=== PATIENT | male | born 1930 | race Caucasian/White ===

== ENCOUNTER 2016-12-27 09:38 | Emergency (ER) | payer MEDICARE, BC ==
--- NOTE | 2016-12-27 10:17 | UC ---
Throat Pain/Nasal Derick HPI - HPI Summary HPI Summary: patient is visiting from [facility], has developed increased sinus pain and pressure, ear pain and persistant cough. - History of Current Complaint Chief Complaint: UCGeneralIllness Stated Complaint: SINUS,EAR PAIN,SORE THROAT Time Seen by Provider: 12/27/16 10:10 Hx Obtained From: Patient Onset/Duration: Sudden Onset, Lasting Days Severity: Moderate Cough: Nonproductive Associated Signs & Symptoms: Positive: Wheezing, Sinus Discomfort, Nasal Discharge - Epiglottits Risk Factors Epiglottis Risk Factors: Negative - Allergies/Home Medications Allergies/Adverse Reactions: Allergies Allergy/AdvReac Type Severity Reaction Status Date / Time No Known Allergies Allergy Verified 12/27/16 09:51 Home Medications: Home Medications Acetaminophen TAB* [Tylenol TAB*] 500 mg PO DAILY 12/27/16 [History Confirmed ] Aspirin EC Low Dose* [Ecotrin EC Low Dose 81 MG*] 81 mg PO DAILY 12/27/16 [ History Confirmed 12/27/16] Atorvastatin* [Lipitor 20 MG*] 20 mg PO BEDTIME 12/27/16 [History Confirmed ] Cholecalciferol TAB* [Vitamin D TAB*] 400 unit PO DAILY 12/27/16 [History Confirmed 12/27/16] Clopidogrel TAB* [Plavix TAB*] 75 mg PO BEDTIME 12/27/16 [History Confirmed ] Cyanocobalamin TAB* [Vitamin B12 TAB*] 1,000 mcg PO DAILY 12/27/16 [History Confirmed 12/27/16] Ferrous Sulfate TAB* 325 mg PO DAILY 12/27/16 [History Confirmed 12/27/16] Metoprolol Succinate XL TAB* [Toprol XL TAB*] 50 mg PO DAILY 12/27/16 [History Confirmed 12/27/16] Pantoprazole TAB (NF) [Protonix TAB (NF)] 40 mg PO DAILY 12/27/16 [History Confirmed 12/27/16] [id number] [Tylenol Sinus Congestion 5-325-200 mg] 2 tab PO Q6HR PRN 12/27/16 [History Confirmed 12/27/16] Tamsulosin CAP* [Flomax CAP*] 0.4 mg PO BEDTIME 12/27/16 [History Confirmed ] amLODIPine TAB* [Norvasc 5 mg TAB*] 5 mg PO DAILY 12/27/16 [History Confirmed ] PMH/Surg Hx/FS Hx/Imm Hx Previously Healthy: Yes Cardiovascular History Of: Reports: Cardiac Disorders, Hypertension GI/ History Of: Reports: Ulcer - Surgical History Surgical History: Yes Surgery Procedure, Year, and Place: left rotator cuff 99, dupertons left hand 01 , dupertons right hand 04, right knee replacement 05, right shoulder replacement 11, carpal tunnel bilateral 14, heart valve clipped 16 - Family History Known Family History: Negative: Cardiac Disease, Hypertension - Social History Alcohol Use: Daily Alcohol Amount: 2 oz liquor a day Substance Use Type: None Smoking Status (MU): Never Smoked Tobacco Review of Systems Constitutional: Fatigue Skin: Negative Eyes: Eye Redness ENT: Sore Throat, Ear Ache, Nasal Discharge Respiratory: Cough Cardiovascular: Negative Gastrointestinal: Negative Genitourinary: Negative Motor: Negative Neurovascular: Negative Musculoskeletal: Negative Neurological: Headache Psychological: Negative All Other Systems Reviewed And Are Negative: Yes Physical Exam Triage Information Reviewed: Yes Appearance: Well-Nourished, Ill-Appearing, Pain Distress Vital Signs: Initial Vital Signs Temp 98.1 F 12/27/16 09:52 Pulse 79 12/27/16 09:52 Resp 16 12/27/16 09:52 BP 144/68 12/27/16 09:52 Pulse Ox 98 12/27/16 09:52 Vital Signs Reviewed: Yes Eye Exam: Normal Eyes: Positive: Conjunctiva Inflamed ENT: Positive: Hearing grossly normal, Pharyngeal erythema, TM bulging, TM red Dental Exam: Normal Neck exam: Normal Neck: Positive: Supple, Nontender, No Lymphadenopathy Respiratory Exam: Normal Respiratory: Positive: Chest non-tender, No respiratory distress, No accessory muscle use, Wheezing, Inspiration Cardiovascular Exam: Normal Cardiovascular: Positive: RRR, No Murmur, Pulses Normal Abdominal Exam: Normal Abdomen Description: Positive: Nontender, No Organomegaly, Soft Bowel Sounds: Positive: Present Musculoskeletal Exam: Normal Musculoskeletal: Positive: Strength Intact, ROM Intact, No Edema Neurological Exam: Normal Neurological: Positive: Alert, Muscle Tone Normal Psychological Exam: Normal Skin Exam: Normal Throat Pain/Nasal Course/Dx - Course Course Of Treatment: Hx obtained, exam performed, meds reviewed, treated for sinusitis and wheezing - Differential Dx/Diagnosis Differential Diagnosis/HQI/PQRI: Otitis Media, Pharyngitis, Sinusitis, URI Provider Diagnoses: sinusitis. wheezing Discharge - Discharge Plan Condition: Stable Disposition: HOME Patient Education Materials: Sinusitis (ED) Additional Instructions: 1. Take the medication as prescribed. 2. Increase your fluid intake 3. Follow up if your symtpoms become worse.
[2016-12-27 10:28] VITALS: BP 144/68
== END 2016-12-27 10:28 | disposition home or self-care (01) ==
LOC: UCCORT 09:38
DX: J32.9 Chronic sinusitis, unspecified (principal); R06.2 Wheezing; I10 Essential (primary) hypertension; Z96.651 Presence of right artificial knee joint; Z96.611 Presence of right artificial shoulder joint
CPT/HCPCS: 99202; G0463